=== PATIENT | female | born 1985 | race Caucasian/White ===

== ENCOUNTER → 2025-01-12 07:10 | Outpatient (CLI) | payer OTHER, SELFPAY ==
[2025-01-12 08:05] LABS: Hematocrit 38.7 % (36-46); Hemoglobin 13.5 g/dL (12.0-16.0); Mean Corpuscular HGB Conc 34.8 % (30-36); Mean Corpuscular Hemoglobin 30.2 PG (26-34); Mean Corpuscular Volume 86.6 fL (80-100); Platelet Count 148 X10^3/uL (150-400)
[2025-01-12 08:17] LABS: INR 1.0 (0.9-1.3); Prothrombin Time 11.2 SECONDS (9.4-12.5)
[2025-01-12 08:50] LABS: Alanine Aminotransferase 71 IU/L (<35); Albumin 4.4 g/dL (3.5-5.0); Albumin Globulin Ratio 1.5 (1.0-2.8); Alkaline Phosphatase 144 U/L (38-126); Blood Urea Nitrogen 14 mg/dL (7-17); Calcium 9.5 mg/dL (8.4-10.2); Carbon Dioxide 26 mmol/L (22-32); Chloride 105 mmol/L (98-107); Estimated Glomerular Filt Rate > 60 mL/min (>60); Globulin 3.0 g/dL (1.7-4.1); Glucose 92 mg/dL (70-99); HEMOLYSIS < 15 (0-50); Potassium 4.5 mmol/L (3.4-5.1); Sodium 136 mmol/L (137-145); Total Protein 7.4 g/dL (6.3-8.2)
== END ==
DX: E78.5 Hyperlipidemia, unspecified (principal); K83.09 Other cholangitis
CPT/HCPCS: 36415; 80053; 82239; 82533; 83695; 85027; 85610